=== PATIENT | male | born 1980 | race Caucasian/White ===

== ENCOUNTER 2017-04-07 16:17 | Emergency (ER) | payer MEDICAID ==
[~2017-04-07] VITALS: Ht 177.8 cm; Wt 91.6 kg
[2017-04-07 16:17] VITALS: BP_SYST 115
[2017-04-07 17:10] VITALS: BP_SYST 114
== END 2017-04-07 17:10 | disposition home or self-care (01) ==
LOC: SED 16:17
DX: T82.838A Hemorrhage due to vascular prosthetic devices, implants and grafts, initial encounter (principal); Z94.1 Heart transplant status; Y83.8 Other surgical procedures as the cause of abnormal reaction of the patient, or of later complication, without mention of misadventure at the time of the procedure
CPT/HCPCS: 99283

== ENCOUNTER 2018-03-22 12:28 | Emergency (ER) | payer MEDICAID ==
[~2018-03-22] VITALS: Ht 180.3 cm; Wt 88.5 kg
[2018-03-22 12:28] VITALS: BP_SYST 73
--- NOTE | 2018-03-22 12:28 | NUR ---
Pt placed to ER bed 08, to gown, to monitoring engineer, report given to GORDO Leahy. Dr. Hendrix called to bedside.
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
--- NOTE | 2018-03-22 12:30 | NUR ---
Dr. Hendrix at bedside for evaluation
--- NOTE | 2018-03-22 12:33 | NUR ---
Pt arrived with [facility]. Not in custody.
--- NOTE | 2018-03-22 13:15 | NUR ---
Dr. Grullon at bedside for evaluation
[2018-03-22] MEDS ORDERED: LIDOCAINE 1% 10 MG/ML, 20 ML MDV INJ ONE (13:30)
[2018-03-22 13:35] LABS: BASOPHILS # (AUTO) 0.1 K/uL (0.0-0.2); BASOPHILS % (AUTO) 0.6 % (0.0-2.0); EOSINOPHILS # (AUTO) 0.1 K/uL (0.0-0.4); EOSINOPHILS % (AUTO) 1.1 % (0.0-4.0); HEMATOCRIT 49.1 % (36-54); HEMOGLOBIN 16.4 g/dL (14.0-18.0); LYMPHOCYTES # (AUTO) 1.6 K/uL (1.0-5.5); LYMPHOCYTES % (AUTO) 16.4 % (20.5-51.5); MEAN CORPUSCULAR HEMOGLOBIN 33 pg (27-31); MEAN CORPUSCULAR HGB CONC 33 % (32-36); MEAN CORPUSCULAR VOLUME 99 fL (79.0-98.0); MONOCYTES # (AUTO) 0.7 K/uL (0.0-1.0); MONOCYTES % (AUTO) 7.3 % (1.7-9.3); NEUTROPHILS # (AUTO) 7.5 K/uL (1.8-7.7); NEUTROPHILS % (AUTO) 74.6 % (40.0-70.0); PLATELET COUNT (AUTO) 262 K/uL (130-430); RED BLOOD CELL COUNT(AUTO) 4.96 MIL/uL (4.2-6.2); RED CELL DISTRIBUTION WIDTH 14.7 % (9.0-15.0)
[2018-03-22 13:45] LABS: CALCIUM 9.2 mg/dL (8.4-11.0); POTASSIUM 3.3 mmol/L (3.5-5.1)
[2018-03-22 13:58] LABS: ALBUMIN 4.1 g/dL (3.4-4.8); TOTAL BILIRUBIN 0.7 mg/dL (0.0-1.0)
[2018-03-22 14:01] LABS: CREATININE 11.9 mg/dL (0.55-1.30)
--- NOTE | 2018-03-22 14:10 | NUR ---
Patient has a puncture wound laceration to left knee . Dr. Grullon applied sutures using sterile technique. Edges well approximated. Site cleansed with betadine. Dressing of non-adherent applied to site. No bleeding noted. Pt tolerated well.
[2018-03-22] MEDS ORDERED: LIDOCAINE 4% TOPICAL 50 ML BOTTLE MM ONE (14:15)
[2018-03-22] MEDS ORDERED: MORPHINE 4 MG/ML INJ. SYRINGE IVP ONE (14:15)
[2018-03-22] MEDS ORDERED: SILVER SULFADIAZINE 1%, 25 GM TOPICAL CREAM (SSD) TP ONE (14:45)
[2018-03-22] MEDS ORDERED: CLINDAMYCIN 600 mg/50mL D5W 50 ML IV ONE (14:45)
--- NOTE | 2018-03-22 15:09 | NUR ---
Site to bilateral palms, right arm, bilateral knees, and great toe cleansed with NS. Non-adherent dressing applied. Addendum: 03/22/18 at 1838 by [email or web address] cleansed sites with normal saline, pat dry, applied silver sulfadiazine and dressed with non-adherent.
[2018-03-22 15:45] VITALS: BP_SYST 109
--- NOTE | 2018-03-22 15:45 | NUR ---
Patient given written and verbal discharge instructions and verbalizes understanding. ER MD discussed with patient the results and treatment provided. Patient in stable condition. ID arm band removed. IV catheter removed intact and dressing applied, no active bleeding. Rx of [place] and Clindamycin given. Patient educated on pain management and to follow up with PMD. Pain Scale 0. Opportunity for questions provided and answered. Medication side effect fact sheet provided.
== END 2018-03-22 15:45 | disposition home or self-care (01) ==
LOC: SED 12:28
DX: S81.012A Laceration without foreign body, left knee, initial encounter (principal); S40.211A Abrasion of right shoulder, initial encounter; Z86.79 Personal history of other diseases of the circulatory system; Y08.89XA Assault by other specified means, initial encounter; Y93.89 Activity, other specified; Y92.89 Other specified places as the place of occurrence of the external cause; Y99.8 Other external cause status
CPT/HCPCS: 12001; 36415; 73560; 80053; 85025; 96365; 96375; 99285; J2001; J2270; J3490

== ENCOUNTER 2019-04-10 07:33 | Emergency (ER) | payer MEDICAID ==
[~2019-04-10] VITALS: Ht 177.8 cm; Wt 86.2 kg
[2019-04-10 07:33] VITALS: BP_SYST 120
[2019-04-10] MEDS ORDERED: KETOROLAC TROMETHAMINE 60 MG/2 ML VIAL IM ONE (08:00)
[2019-04-10 08:58] VITALS: BP_SYST 120
== END 2019-04-10 08:58 | disposition home or self-care (01) ==
LOC: SED 07:33
DX: M25.511 Pain in right shoulder (principal)
CPT/HCPCS: 96372; 99283; J1885

== ENCOUNTER 2020-01-17 19:28 | Inpatient (IN) | payer MEDICAID ==
[~2020-01-17] VITALS: Ht 177.8 cm; Wt 91.8 kg
[2020-01-17 20:23] VITALS: BP_SYST 107
[2020-01-17] MEDS ORDERED: LIDOCAINE 1% 10 MG/ML, 20 ML MDV INJ ONE (21:00)
[2020-01-17 21:25] LABS: BASOPHILS # (AUTO) 0.1 K/uL (0.0-0.2); BASOPHILS % (AUTO) 0.8 % (0.0-2.0); EOSINOPHILS # (AUTO) 0.1 K/uL (0.0-0.4); EOSINOPHILS % (AUTO) 0.9 % (0.0-4.0); HEMOGLOBIN 14.8 g/dL (14.0-18.0); LYMPHOCYTES # (AUTO) 1.1 K/uL (1.0-5.5); LYMPHOCYTES % (AUTO) 8.8 % (20.5-51.5); MEAN CORPUSCULAR HEMOGLOBIN 32 pg (27-31); MEAN CORPUSCULAR HGB CONC 33 % (32-36); MEAN CORPUSCULAR VOLUME 97 fL (79.0-98.0); MONOCYTES # (AUTO) 0.8 K/uL (0.0-1.0); MONOCYTES % (AUTO) 6.2 % (1.7-9.3); NEUTROPHILS # (AUTO) 10.4 K/uL (1.8-7.7); NEUTROPHILS % (AUTO) 83.3 % (40.0-70.0); PLATELET COUNT (AUTO) 316 K/uL (130-430); RED BLOOD CELL COUNT(AUTO) 4.62 MIL/uL (4.2-6.2); RED CELL DISTRIBUTION WIDTH 14.9 % (9.0-15.0); WHITE BLOOD COUNT (AUTO) 12.5 K/uL (4.8-10.8)
[2020-01-17 21:32] LABS: CALCIUM 9.1 mg/dL (8.4-11.0); POTASSIUM 3.8 mmol/L (3.5-5.1)
[2020-01-17 21:42] LABS: CREATININE 9.87 mg/dL (0.55-1.30)
[2020-01-17 21:43] LABS: ALBUMIN 3.8 g/dL (3.4-4.8); TOTAL BILIRUBIN 0.3 mg/dL (0.0-1.0)
[2020-01-17] MEDS ORDERED: VANCOMYCIN HCL 1 GM/NS PREMIX 250 ML IV ONE (23:00)
[2020-01-17] MEDS ORDERED: ESOM40CA PO (23:07)
[2020-01-17] MEDS ORDERED: PRAV40TA PO (23:07)
[2020-01-17] MEDS ORDERED: PRED5TAB PO (23:07)
[2020-01-17] MEDS ORDERED: CARV12.548 PO (23:07)
[2020-01-17] MEDS ORDERED: MYCO500T PO (23:07)
[2020-01-17] MEDS ORDERED: ASPI-1153 PO (23:07)
[2020-01-17] MEDS ORDERED: TACR1CAP PO (23:07)
[2020-01-17 23:08] VITALS: BP_SYST 123
[2020-01-18] VITALS (12 sets, daily range): BP systolic 90–123
[2020-01-18] MEDS ORDERED: VANCOMYCIN HCL 1000 MG/VIAL IV ONE (00:25)
[2020-01-18] MEDS ORDERED: D5NS 1,000 ML IV SCH (00:30)
[2020-01-18] MEDS ORDERED: MORPHINE 2 MG/ML INJ. SYRINGE IVP PRN ×3 (00:30→08:45)
[2020-01-18] MEDS ORDERED: ONDANSETRON HCL 4 MG/2 ML VIAL IVP PRN ×3 (00:30→16:15)
[2020-01-18] MEDS ORDERED: ONDANSETRON HCL 4 MG/2 ML VIAL ONE (00:53)
[2020-01-18] MEDS: D5NS 1,000 ML IV SCH ×2 (01:45→23:54)
[2020-01-18 07:36] LABS: BASOPHILS # (AUTO) 0.1 K/uL (0.0-0.2); BASOPHILS % (AUTO) 0.4 % (0.0-2.0); EOSINOPHILS % (AUTO) 0.3 % (0.0-4.0); HEMATOCRIT 41.6 % (36-54); HEMOGLOBIN 13.5 g/dL (14.0-18.0); LYMPHOCYTES # (AUTO) 0.7 K/uL (1.0-5.5); LYMPHOCYTES % (AUTO) 4.7 % (20.5-51.5); MEAN CORPUSCULAR HEMOGLOBIN 32 pg (27-31); MEAN CORPUSCULAR HGB CONC 33 % (32-36); MEAN CORPUSCULAR VOLUME 98 fL (79.0-98.0); MONOCYTES # (AUTO) 0.9 K/uL (0.0-1.0); MONOCYTES % (AUTO) 6.3 % (1.7-9.3); NEUTROPHILS # (AUTO) 12.6 K/uL (1.8-7.7); NEUTROPHILS % (AUTO) 88.3 % (40.0-70.0); PLATELET COUNT (AUTO) 267 K/uL (130-430); RED BLOOD CELL COUNT(AUTO) 4.25 MIL/uL (4.2-6.2); RED CELL DISTRIBUTION WIDTH 14.9 % (9.0-15.0); WHITE BLOOD COUNT (AUTO) 14.2 K/uL (4.8-10.8)
[2020-01-18 07:43] LABS: CALCIUM 8.8 mg/dL (8.4-11.0); POTASSIUM 3.7 mmol/L (3.5-5.1)
[2020-01-18 07:45] LABS: CREATININE 11.23 mg/dL (0.55-1.30)
[2020-01-18] MEDS ORDERED: LORazepam 2 MG/ML VIAL IVP PRN (08:45)
[2020-01-18] MEDS ORDERED: ZOLPIDEM TARTRATE 5 MG TABLET PO PRN (08:45)
[2020-01-18] MEDS ORDERED: MUPIROCIN 2% TOPICAL OINTMENT 22 GM NS PRN (08:45)
[2020-01-18] MEDS ORDERED: DOCUSATE SODIUM 100 MG CAPSULE PO PRN (08:45)
[2020-01-18] MEDS ORDERED: ACETAMINOPHEN 325 MG TABLET PO PRN (08:45)
[2020-01-18] MEDS ORDERED: MAGNESIUM SULFATE 50 ML IV PRN (08:45)
[2020-01-18] MEDS ORDERED: POTASSIUM CHLORIDE 20 MEQ TAB.PRT.SR PO PRN (08:45)
[2020-01-18] MEDS ORDERED: TACROLIMUS ANHYDROUS 1 MG CAPSULE (PROGRAF) PO SCH (09:00)
[2020-01-18] MEDS: MYCOPHENOLATE MOFETIL 250 MG CAPSULE PO SCH ×2 (09:31→20:12)
[2020-01-18] MEDS: PREDNISONE 5 MG TABLET PO SCH (09:33)
[2020-01-18] MEDS: TACROLIMUS ANHYDROUS 1 MG CAPSULE (PROGRAF) PO SCH ×2 (09:34→20:12)
[2020-01-18] MEDS: ATORVASTATIN 10 MG TABLET PO SCH (09:36)
[2020-01-18] MEDS: ASPIRIN 81 MG TABLET(ECOTRIN) PO SCH (09:36)
[2020-01-18] MEDS: CARVEDILOL 12.5 MG TABLET (COREG) PO SCH ×2 (09:37→20:12)
[2020-01-18 15:44] LABS: PROTHROMBIN TIME 10.5 SECS (9.5-12.5)
[2020-01-18] MEDS ORDERED: POLYMYXIN 500,000/BACIT.10,000 UNITS in NS IRR 1 L IR ONE (16:13)
[2020-01-18] MEDS ORDERED: fentaNYL CITRATE/PF 100 MCG/2 ML AMP IVP PRN ×2 (16:15)
[2020-01-18] MEDS ORDERED: NS IRRIG SOLN 1000 ML IR ONE (16:35)
[2020-01-18] MEDS ORDERED: MIDAZOLAM HCL 5 MG/ML VIAL (VERSED) IV ONE (16:35)
[2020-01-18] MEDS ORDERED: LIDOCAINE 1% 10 MG/ML, 20 ML MDV ONE (16:35)
[2020-01-18] MEDS ORDERED: PROPOFOL 200MG/ 20ML VIAL (DIPRIVAN) IV ONE (16:35)
[2020-01-18] MEDS ORDERED: BUPIVACAINE /EPINEPHRINE/PF 0.25% 30 ML VIAL INJ ONE (16:35)
[2020-01-18] MEDS ORDERED: LR 1,000 ML IV.SOLN IV ONE (16:35)
[2020-01-18] MEDS ORDERED: HYDROCORTISONE SOD SUCC 100 MG/2 ML VIAL IVP ONE (20:45)
[2020-01-19 00:27] VITALS: BP_SYST 94
[2020-01-19 06:32] LABS: BASOPHILS % (AUTO) 0.3 % (0.0-2.0); EOSINOPHILS % (AUTO) 0.1 % (0.0-4.0); HEMATOCRIT 39.6 % (36-54); HEMOGLOBIN 12.9 g/dL (14.0-18.0); LYMPHOCYTES # (AUTO) 0.4 K/uL (1.0-5.5); LYMPHOCYTES % (AUTO) 5.1 % (20.5-51.5); MEAN CORPUSCULAR HEMOGLOBIN 32 pg (27-31); MEAN CORPUSCULAR HGB CONC 33 % (32-36); MEAN CORPUSCULAR VOLUME 98 fL (79.0-98.0); MONOCYTES # (AUTO) 0.3 K/uL (0.0-1.0); MONOCYTES % (AUTO) 4.4 % (1.7-9.3); NEUTROPHILS # (AUTO) 7.1 K/uL (1.8-7.7); NEUTROPHILS % (AUTO) 90.1 % (40.0-70.0); PLATELET COUNT (AUTO) 240 K/uL (130-430); RED BLOOD CELL COUNT(AUTO) 4.04 MIL/uL (4.2-6.2); RED CELL DISTRIBUTION WIDTH 14.8 % (9.0-15.0); WHITE BLOOD COUNT (AUTO) 7.9 K/uL (4.8-10.8)
[2020-01-19 06:55] LABS: CALCIUM 8.6 mg/dL (8.4-11.0); POTASSIUM 4.5 mmol/L (3.5-5.1); VANCOMYCIN,RANDOM 17.7 ug/mL
[2020-01-19 07:00] LABS: CREATININE 13.67 mg/dL (0.55-1.30)
[2020-01-19 08:00] VITALS: BP_SYST 109
[2020-01-19] MEDS ORDERED: metroNIDAZOLE 250 mg/NS 50 ML IV ONE (08:45)
[2020-01-19] MEDS: ASPIRIN 81 MG TABLET(ECOTRIN) PO SCH (09:18)
[2020-01-19] MEDS: CARVEDILOL 12.5 MG TABLET (COREG) PO SCH ×2 (09:18→20:22)
[2020-01-19] MEDS: ATORVASTATIN 10 MG TABLET PO SCH (09:18)
[2020-01-19] MEDS: PREDNISONE 5 MG TABLET PO SCH (09:18)
[2020-01-19] MEDS: TACROLIMUS ANHYDROUS 1 MG CAPSULE (PROGRAF) PO SCH ×2 (09:19→20:23)
[2020-01-19] MEDS: MYCOPHENOLATE MOFETIL 250 MG CAPSULE PO SCH ×2 (09:19→20:23)
[2020-01-19 12:48] VITALS: BP_SYST 99
[2020-01-19] MEDS: metroNIDAZOLE 250 mg/NS 50 ML IV SCH ×2 (14:36→21:14)
[2020-01-19 16:26] VITALS: BP_SYST 114
[2020-01-19] MEDS ORDERED: HYDROcodone/ACETAMIN 5-325 MG TAB (NORCO/ VICODIN) PO PRN (18:00)
[2020-01-19 20:00] VITALS: BP_SYST 108
[2020-01-19] MEDS: D5NS 1,000 ML IV SCH (21:13)
[2020-01-20] MEDS: metroNIDAZOLE 250 mg/NS 50 ML IV SCH ×3 (05:19→21:13)
[2020-01-20 05:26] VITALS: BP_SYST 100
[2020-01-20 06:28] LABS: BASOPHILS % (AUTO) 0.2 % (0.0-2.0); EOSINOPHILS # (AUTO) 0.1 K/uL (0.0-0.4); EOSINOPHILS % (AUTO) 1.5 % (0.0-4.0); HEMATOCRIT 35.8 % (36-54); HEMOGLOBIN 11.9 g/dL (14.0-18.0); LYMPHOCYTES # (AUTO) 1.2 K/uL (1.0-5.5); LYMPHOCYTES % (AUTO) 15.8 % (20.5-51.5); MEAN CORPUSCULAR HEMOGLOBIN 32 pg (27-31); MEAN CORPUSCULAR HGB CONC 33 % (32-36); MEAN CORPUSCULAR VOLUME 97 fL (79.0-98.0); MONOCYTES # (AUTO) 0.8 K/uL (0.0-1.0); MONOCYTES % (AUTO) 10.9 % (1.7-9.3); NEUTROPHILS # (AUTO) 5.3 K/uL (1.8-7.7); NEUTROPHILS % (AUTO) 71.6 % (40.0-70.0); PLATELET COUNT (AUTO) 244 K/uL (130-430); RED CELL DISTRIBUTION WIDTH 14.6 % (9.0-15.0); WHITE BLOOD COUNT (AUTO) 7.4 K/uL (4.8-10.8)
[2020-01-20 06:30] LABS: CALCIUM 8.3 mg/dL (8.4-11.0); POTASSIUM 3.9 mmol/L (3.5-5.1)
[2020-01-20 07:55] LABS: CREATININE 16.45 mg/dL (0.55-1.30)
[2020-01-20 08:00] VITALS: BP_SYST 88
[2020-01-20] MEDS: ATORVASTATIN 10 MG TABLET PO SCH (09:00)
[2020-01-20] MEDS: MYCOPHENOLATE MOFETIL 250 MG CAPSULE PO SCH ×2 (09:00→21:12)
[2020-01-20] MEDS: CARVEDILOL 12.5 MG TABLET (COREG) PO SCH ×2 (09:00→21:00)
[2020-01-20] MEDS: TACROLIMUS ANHYDROUS 1 MG CAPSULE (PROGRAF) PO SCH ×2 (09:00→21:13)
[2020-01-20] MEDS: PREDNISONE 5 MG TABLET PO SCH (09:00)
[2020-01-20] MEDS: ASPIRIN 81 MG TABLET(ECOTRIN) PO SCH (09:00)
[2020-01-20 12:30] VITALS: BP_SYST 105
[2020-01-20] MEDS: cefTRIAXone 1 GM in D5W 50 ML IV SCH (15:45)
[2020-01-20 16:58] VITALS: BP_SYST 101
[2020-01-20 20:00] VITALS: BP_SYST 104
[2020-01-21 00:01] VITALS: BP_SYST 118
[2020-01-21] MEDS: D5NS 1,000 ML IV SCH (00:13)
[2020-01-21] MEDS: metroNIDAZOLE 250 mg/NS 50 ML IV SCH ×2 (05:06→14:56)
[2020-01-21 06:55] LABS: BASOPHILS % (AUTO) 0.5 % (0.0-2.0); EOSINOPHILS # (AUTO) 0.1 K/uL (0.0-0.4); EOSINOPHILS % (AUTO) 2.4 % (0.0-4.0); HEMATOCRIT 36.9 % (36-54); HEMOGLOBIN 11.9 g/dL (14.0-18.0); LYMPHOCYTES # (AUTO) 1.1 K/uL (1.0-5.5); MEAN CORPUSCULAR HEMOGLOBIN 32 pg (27-31); MEAN CORPUSCULAR HGB CONC 32 % (32-36); MEAN CORPUSCULAR VOLUME 98 fL (79.0-98.0); MONOCYTES # (AUTO) 0.6 K/uL (0.0-1.0); MONOCYTES % (AUTO) 11.6 % (1.7-9.3); NEUTROPHILS # (AUTO) 3.3 K/uL (1.8-7.7); NEUTROPHILS % (AUTO) 63.5 % (40.0-70.0); PLATELET COUNT (AUTO) 243 K/uL (130-430); RED BLOOD CELL COUNT(AUTO) 3.76 MIL/uL (4.2-6.2); RED CELL DISTRIBUTION WIDTH 14.5 % (9.0-15.0); WHITE BLOOD COUNT (AUTO) 5.1 K/uL (4.8-10.8)
[2020-01-21 07:33] LABS: CALCIUM 8.2 mg/dL (8.4-11.0); POTASSIUM 4.9 mmol/L (3.5-5.1)
[2020-01-21 08:40] LABS: CREATININE 12.36 mg/dL (0.55-1.30)
[2020-01-21] MEDS: CARVEDILOL 12.5 MG TABLET (COREG) PO SCH (09:05)
[2020-01-21] MEDS: TACROLIMUS ANHYDROUS 1 MG CAPSULE (PROGRAF) PO SCH (09:05)
[2020-01-21] MEDS: PREDNISONE 5 MG TABLET PO SCH (09:05)
[2020-01-21] MEDS: ASPIRIN 81 MG TABLET(ECOTRIN) PO SCH (09:05)
[2020-01-21] MEDS: ATORVASTATIN 10 MG TABLET PO SCH (09:05)
[2020-01-21] MEDS: MYCOPHENOLATE MOFETIL 250 MG CAPSULE PO SCH (09:06)
[2020-01-21 09:08] VITALS: BP_SYST 124
[2020-01-21 12:32] VITALS: BP_SYST 111
[2020-01-21] MEDS ORDERED: VANCOMYCIN HCL 1,000 MG in NS 250 ML IV ONE (13:00)
[2020-01-21] MEDS ORDERED: LEVO500T89 PO (13:37)
[2020-01-21] MEDS: cefTRIAXone 1 GM in D5W 50 ML IV SCH (14:33)
[2020-01-21 16:55] VITALS: BP_SYST 112
[2020-01-21 17:39] VITALS: BP_SYST 112
[2020-01-21 19:50] VITALS: BP_SYST 143
== END 2020-01-21 19:50 | disposition home or self-care (01) | DRG 383 ==
LOC: SED 19:28 → STU 22:33
PROVIDERS: ADMIT General Practice; ATTEND General Practice
PROC: 0JB90ZZ Excision of Buttock Subcutaneous Tissue and Fascia, Open Approach (ICD-10-PCS; 2020-01-18)
PROC: 0Y910ZZ Drainage of Left Buttock, Open Approach (ICD-10-PCS; principal; 2020-01-18 15:15)
PROC: 5A1D70Z Performance of Urinary Filtration, Intermittent, Less than 6 Hours Per Day (ICD-10-PCS; 2020-01-20)
DX: L02.31 Cutaneous abscess of buttock (principal); N17.0 Acute kidney failure with tubular necrosis; I42.9 Cardiomyopathy, unspecified; Z94.1 Heart transplant status; R65.10 Systemic inflammatory response syndrome (SIRS) of non-infectious origin without acute organ dysfunction; N18.6 End stage renal disease; E87.1 Hypo-osmolality and hyponatremia; E66.01 Morbid (severe) obesity due to excess calories; G82.20 Paraplegia, unspecified; B96.20 Unspecified Escherichia coli [E. coli] as the cause of diseases classified elsewhere; B95.2 Enterococcus as the cause of diseases classified elsewhere; Z82.3 Family history of stroke; Z99.2 Dependence on renal dialysis; Z82.49 Family history of ischemic heart disease and other diseases of the circulatory system; Z68.29 Body mass index [BMI] 29.0-29.9, adult
CPT/HCPCS: 36415; 71045; 80048; 80053; 80202-TC; 83036; 83605; 83735-TC; 85025; 85610-TC; 87040-TC; 87070; 87070-TC; 87075-TC; 87081; 87186-TC; 90935; 93005; 99285; G0378; J0696; J1720; J2001; J2250; J2270; J2405; J2704; J3370; J3490; J7030; J7042; J7050; J7060; J7120; J7507; J7512; J7517